=== PATIENT | female | born 1985 | race Hispanic/Latino ===

== ENCOUNTER 2017-04-03 17:11 | Emergency (ER) | payer OTHER ==
[2017-04-03] MEDS ORDERED: FLEXERIL PO ONE (20:40)
[2017-04-03] MEDS ORDERED: ULTRAM PO ONE (20:40)
--- NOTE | 2017-04-03 21:48 | Cat Scan Report ---
FINAL REPORT EXAM: CT CERVICAL SPINE WO CON HISTORY: c spine tenderness and pain COMPARISON: None available. TECHNIQUE: Axial images obtained through the cervical spine. Additional sagittal and coronal reformatted images were obtained. FINDINGS: Normal lordotic curvature of the cervical spine. Cervical vertebral body heights are preserved. No acute fracture or traumatic subluxation. Odontoid process, articular pillars and occipital condyles are intact. No significant bony encroachment upon the canal or foramen. IMPRESSION: No acute fracture or subluxation of the cervical spine.
--- NOTE | 2017-04-03 22:57 | XRay Report ---
FINAL REPORT EXAM: XR SPINE LUMBOSACRAL 2-3V HISTORY: spine tenderness after lifting someone heavy COMPARISON: None available. FINDINGS: Three views of the lumbar spine obtained. Lumbar vertebral body heights and disc heights are preserved. Pedicles are intact. No spondylolisthesis. Mild straightening of the lumbar spine. IMPRESSION: Lumbar vertebral body heights and disc heights are preserved. Mild straightening of the lumbar spine which may be positional or could relate to muscle spasm.
--- NOTE | 2017-04-03 22:57 | XRay Report ---
FINAL REPORT EXAM: XR CHEST ROUTINE 2V HISTORY: rib pain and after trying to lift up heavy person COMPARISON: None available. FINDINGS:: Frontal and lateral views of the chest obtained. Cardiac silhouette is within normal limits. No focal consolidation or effusion. No pneumothorax. Visualized bony thorax is grossly intact. IMPRESSION:: No acute findings.
--- NOTE | 2017-04-03 23:11 | XRay Report ---
FINAL REPORT EXAM: XR SPINE THORACIC 3V HISTORY: spinal tenderness after lifting up heavy person COMPARISON: None available. FINDINGS: Three views of the thoracic spine obtained. Thoracic vertebral body heights are preserved. Minimal endplate osteophyte. Disc heights are preserved. Pedicles are intact. Normal kyphotic curvature. IMPRESSION: Thoracic vertebral body heights are preserved. Minimal degenerative changes.
[2017-04-03 23:34] VITALS: BP 122/82
--- NOTE | 2017-04-03 23:34 | Emergency Department Report ---
ED Back Pain/Injury HPI - General Chief Complaint: Back Pain/Injury Stated Complaint: BACK PAIN Source: patient Limitations: No Limitations - History of Present Illness Initial Comments: 31 y/o obese causcasian F with pmhx of hypothryroidism presents to the ER s/p a work related injury that happened 2 days ago. 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 pt states that she took aleive and back aid with mild relief of the pain. Pt denies any caudina equina symptoms, no saddle anesthsiea, bladder/bowel incontinences. She denies any numbness or tingling. She denies any chest pain or SOB at this time. Pt denies being on any control, denies immobilization, no long car or plane rides recently, no cancer hx. SHe states that the pain is on and off she states it feels like it tightens and then lets go. Pt states that she had a tubal ligation after her last child- no chance of . Allergies to bacitracin, latex, neomycin, and polymyxin. MD Complaint: back pain, back injury -: Sudden (2 days ago) Similar Symptoms Previously: No Place: work Radiation: other (near breast) Severity: severe Severity scale (0 -10): 10 Quality: sharp Consistency: intermittent Improves With: none Worsens With: none Context: while lifting Treatments Prior to Arrival: NSAIDS, other (back aid) - Related Data Previous Rx's Medication Instructions Recorded Last Taken Type Cyclobenzaprine [Flexeril] 10 mg PO TID PRN #15 tablet 04/03/17 Unknown Rx HYDROcodone/ACETAMINOPHEN [[place] 1 each PO Q6HR PRN #15 tablet 04/03/17 Unknown Rx 5-325 Tablet] Allergies Allergy/AdvReac Type Severity Reaction Status Date / Time bacitracin AdvReac Rash Verified 04/03/17 17:58 [From Neosporin ([id number])] latex AdvReac Rash Verified 04/03/17 17:58 neomycin AdvReac Rash Verified 04/03/17 17:58 [From Neosporin ([id number])] polymyxin B AdvReac Rash Verified 04/03/17 17:58 [From Neosporin ([id number])] ED Review of Systems ROS: Stated complaint: BACK PAIN Other details as noted in HPI Constitutional: denies: chills, fever Eyes: denies: eye pain, eye discharge, vision change ENT: denies: ear pain, throat pain Respiratory: other (some radiation of the pain to the ribs). denies: cough, shortness of breath, wheezing Cardiovascular: denies: chest pain, palpitations Gastrointestinal: denies: abdominal pain, nausea, diarrhea Genitourinary: denies: urgency, dysuria, discharge Musculoskeletal: back pain Skin: denies: rash, lesions Neurological: denies: headache, weakness, paresthesias Psychiatric: denies: anxiety, depression ED Past Medical Hx - Past Medical History Previous Medical History?: No - Surgical History Past Surgical History?: Yes Hx Appendectomy: Yes Additional Surgical History: x 4, knee, tubal - Social History Smoking Status: Current Every Day Smoker Substance Use Type: None - Medications Home Medications: Home Medications Medication Instructions Recorded Confirmed Last Taken Type Cyclobenzaprine [Flexeril] 10 mg PO TID PRN #15 tablet 04/03/17 Unknown Rx HYDROcodone/ACETAMINOPHEN [[place] 1 each PO Q6HR PRN #15 tablet 04/03/17 Unknown Rx 5-325 Tablet] ED Physical Exam - General Limitations: No Limitations General appearance: alert, in no apparent distress, other (appears to be in extreme pain when I first examined patient-- pt was in a wheelchair for transport at first but by the end of the visit she was able to ambulate on her own ) - Head Head exam: Present: atraumatic, normocephalic - Eye Eye exam: Present: normal appearance - ENT ENT exam: Present: mucous membranes moist - Neck Neck exam: Present: tenderness (at the C- spine), full ROM - Respiratory Respiratory exam: Present: normal lung sounds bilaterally, other (some radiation of the pain to the sides at the rib cage region). Absent: respiratory distress - Cardiovascular Cardiovascular Exam: Present: regular rate, normal rhythm. Absent: systolic murmur, diastolic murmur, rubs, gallop - GI/Abdominal GI/Abdominal exam: Present: soft, normal bowel sounds - Extremities Exam Extremities exam: Present: normal inspection - Back Exam Back exam: Present: muscle spasm, paraspinal tenderness (at the c, t, and l spine region), vertebral tenderness, other (there was no swelling, bruising, or redness noted) - Neurological Exam Neurological exam: Present: alert, oriented X3, CN II-XII intact, other (pt was bent over as she was in alot of pain) - Expanded Neurological Exam Expanded Patient oriented to: Present: person, place, time Speech: Present: fluid speech Best Eye Response ([place]): (4) open spontaneously Best Motor Response (Fabian): (6) obeys commands Best Verbal Response ([place]ian): (5) oriented [place] Total: 15 - Psychiatric Psychiatric exam: Present: normal affect, normal mood - Skin Skin exam: Present: warm, dry, intact, normal color. Absent: rash ED Course Vital Signs 04/03/17 04/03/17 17:52 23:33 Temperature 98.2 F 98.0 F Pulse Rate 92 H 79 Respiratory 18 18 Rate Blood Pressure 127/94 Blood Pressure 122/82 [Right] O2 Sat by Pulse 97 98 Oximetry ED Medical Decision Making - Radiology Data Radiology results: report reviewed, image reviewed CT cervical w/o contrast: no acute findings or subluxation of the cervical spine. XR thoracic spine: throacic vertebral body height are preserved, minimal degenerative changes. (osteophyte) XR lumbosacral spine: lumbar vertebral body heights and disc heights are preserved. mild straigthening of the lumbar spine which may be positional or could be related to muscle spasm. XR chest routine: (I did not see any rib fractures.)-- no acute findings were noted by radiology. - Medical Decision Making CT of the c spine was conducted as she had tenderness at the cervical spine region and this is a more definitive exam, then XR of the thoracic and lumbar regions were also conducted-- there was no evidence of fractures. I have offered to do a more extensive cardio and pulmonary work-up as she states that at points it may feel like the pain comes to the anterior aspect of her chest. pt denies and signed AMA form, risks and benefits of refusal were explained to the patient. Armen was in the room to witness. Pt was given ultram and flexeril here in the ED with severe improvement of her pain. Case was discussed with Dr. Oliva, she states that we can discharge patient at this time with [place] and flexeril. I also encouraged rest and warm compresses with orthopedic follow-up. Pt was alert and oriented, vitals were all WNL, and she was speaking in full sentences and was able to walk on her own at discharge. Pt was to take uber to transport her home. Critical care attestation.: If time is entered above; I have spent that time in minutes in the direct care of this critically ill patient, excluding procedure time. ED Disposition Clinical Impression: Muscle spasm Back pain Qualifiers: Back pain location: back pain in unspecified location Chronicity: acute Back pain laterality: bilateral Qualified Code(s): M54.9 - Dorsalgia, unspecified Disposition: - TO HOME OR SELFCARE Is pt being admited?: No Does the pt Need Aspirin: No Condition: Stable Instructions: Muscle Spasm (ED) Additional Instructions: Please do warm compresses to the site and rest. Please do not take this medication when driving or operating heavy machinery as it will make you drowsy. Please follow-up with orthopedics within 1 week. please return to the ER immediately if your presenting symptoms acutely worsen as discussed today. Prescriptions: Cyclobenzaprine [Flexeril] 10 mg PO TID PRN #15 tablet PRN Reason: Muscle Spasm HYDROcodone/ACETAMINOPHEN [[place] 5-325 Tablet] 1 each PO Q6HR PRN #15 tablet PRN Reason: Pain Referrals: PRIMARY CAREMD [Primary Care Provider] - 3-5 Days ARIS MARTINEZ MD [Staff Physician] - 3-5 Days [facility] [Outside] - 3-[address] [facility] [Outside] - 3-5 Days Forms: Accompanied Note, Work/School Release Form(ED)
== END 2017-04-03 23:40 | disposition home or self-care (01) ==
LOC: ED 17:11
DX: M62.830 Muscle spasm of back (principal); F17.200 Nicotine dependence, unspecified, uncomplicated; Z88.8 Allergy status to other drugs, medicaments and biological substances; Z88.1 Allergy status to other antibiotic agents; Z91.040 Latex allergy status
CPT/HCPCS: 71020; 72072; 72100; 72125; 99284

== ENCOUNTER 2021-07-04 17:32 | Emergency (ER) | payer SELFPAY ==
[2021-07-04 19:46] LABS: Basophils # (Auto) 0.1 K/mm3 (0.0-0.1); Basophils % (Auto) 0.7 % (0.0-1.8); Eosinophils # (Auto) 0.2 K/mm3 (0.0-0.4); Eosinophils % (Auto) 1.8 % (0.0-4.3); Hemoglobin 14.2 gm/dl (10.1-14.3); Lymphocytes # (Auto) 2.9 K/mm3 (1.2-5.4); Lymphocytes % (Auto) 33.7 % (13.4-35.0); Mean Corpuscular HGB Conc 35 % (30-34); Mean Corpuscular Volume 91 fl (79-97); Monocytes # (Auto) 0.5 K/mm3 (0.0-0.8); Monocytes % (Auto) 5.7 % (0.0-7.3); Platelet Count 328 K/mm3 (140-440); Red Blood Count 4.48 M/mm3 (3.65-5.03); Red Cell Distribution Width 13.6 % (13.2-15.2)
[2021-07-04 20:02] LABS: INR 0.84 (0.87-1.13); Partial Thromboplastin Time 27.8 Sec. (24.2-36.6)
[2021-07-04 20:12] LABS: Alanine Aminotransferase 29 units/L (7-56); Albumin 4.2 g/dL (3.9-5); Blood Urea Nitrogen 8 mg/dL (7-17); Calcium 9.4 mg/dL (8.4-10.2); Hemolysis Index 5
[2021-07-04 20:22] LABS: BUN/Creatinine Ratio 16
--- NOTE | 2021-07-04 20:29 | Emergency Department Report ---
HPI - General Chief Complaint: GI Bleed Time Seen by Provider: 07/04/21 20:03 - HPI HPI: Reassessment 4 The patient is a 35-year-old female present with a chief complaint of headache and hematochezia. Patient states she has had 3-4 headaches a day daily for the past 2 months. Patient states this usually occipital in nature. Patient denies any preceding trauma or history of fever. Patient states also today she developed some periumbilical abdominal pain then went to the bathroom. Patient states she thought she was having diarrhea but noted she was passing blood in the stool. Patient had a second episode and passed more blood with clots. Deo gutierrez states she then developed lower abdominal pain described as a pressure and nausea without vomiting. Patient subsequently came to the ED for evaluation. ED Past Medical Hx - Past Medical History Previous Medical History?: Yes Additional medical history: hypothyroidism, endometriosis - Surgical History Past Surgical History?: Yes Hx Appendectomy: Yes Additional Surgical History: x 4, knee, bilateral tubal ligation, hysteroscopy, ganglion cyst removal left wrist - Family History Family history: no significant - Social History Smoking Status: Current Every Day Smoker (1 pack/day) Substance Use Type: None (Denies illicit drug use), Alcohol (Rarely) - Medications Home Medications: Home Medications Medication Instructions Recorded Confirmed Last Taken Type Cyclobenzaprine [Flexeril] 10 mg PO TID PRN #15 tablet 04/03/17 Unknown Rx HYDROcodone/ACETAMINOPHEN [[place] 1 each PO Q6HR PRN #15 tablet 04/03/17 Unknown Rx 5-325 Tablet] Ciprofloxacin HCl 500 mg PO BID #10 07/04/21 Unknown Rx HYDROcodone/APAP 5-325 [[place] 1 - 2 each PO Q6HR PRN #10 tablet 07/04/21 Unknown Rx 5/325] ED Review of Systems ROS: Stated complaint: RECTAL BLEEDING Other details as noted in HPI Constitutional: denies: fever Eyes: denies: eye pain ENT: denies: throat pain Respiratory: no symptoms reported Cardiovascular: denies: chest pain Endocrine: no symptoms reported Gastrointestinal: abdominal pain, nausea, hematochezia. denies: vomiting Genitourinary: denies: dysuria Musculoskeletal: denies: back pain Neurological: headache Physical Exam - Physical Exam Vital Signs: Vital Signs 07/04/21 17:42 Temperature 98.2 F Pulse Rate 90 Respiratory 20 Rate Blood Pressure 142/82 [Right] O2 Sat by Pulse 98 Oximetry Physical Exam: GENERAL: The patient is well-developed well-nourished female lying on stretcher not appearing to be in acute distress. [] HEENT: Normocephalic. Atraumatic. Extraocular motions are intact. Patient has moist mucous membranes. NECK: Supple. No meningitic signs are noted. Trachea midline CHEST/LUNGS: Clear to auscultation. There is no respiratory distress noted. HEART/CARDIOVASCULAR: Regular. There is no tachycardia. There is no gallop rub or murmur. ABDOMEN: Abdomen is soft, with mild discomfort to palpation in the left lower quadrant and suprapubic region. Patient has normal bowel sounds. There is no abdominal distention. SKIN: There is no rash. There is no edema. There is no diaphoresis. NEURO: The patient is awake, alert, and oriented. The patient is cooperative. The patient has no focal neurologic deficits. The patient has normal speech. GCS 15. Cranial nerves II through XII grossly intact MUSCULOSKELETAL: There is no evidence of acute injury. RECTAL: Guaiac positive. No external hemorrhoids visualized ED Course Vital Signs 07/04/21 17:42 Temperature 98.2 F Pulse Rate 90 Respiratory 20 Rate Blood Pressure 142/82 [Right] O2 Sat by Pulse 98 Oximetry - Consultations Consultation #1: 07/04/21 23:04 GI paged 07/04/21 23:13 Case discussed with principal law clerk Dr. Champion-recommends initiating ciprofloxacin or Augmentin x5 days and have patient follow-up in office ED Medical Decision Making - Lab Data Result diagrams: 07/04/21 19:23 07/04/21 19:23 Laboratory Tests 07/04/21 07/04/21 07/04/21 19:23 19:23 19:23 WBC 8.6 RBC 4.48 Hgb 14.2 Hct 41.0 MCV 91 MCH 32 MCHC 35 H RDW 13.6 Plt Count 328 Lymph % (Auto) 33.7 Hayes % (Auto) 5.7 Eos % (Auto) 1.8 Baso % (Auto) 0.7 Lymph # (Auto) 2.9 Hayes # (Auto) 0.5 Eos # (Auto) 0.2 Baso # (Auto) 0.1 Seg Neutrophils % 58.1 Seg Neutrophils # 5.0 PT 12.4 INR 0.84 L APTT 27.8 Sodium 142 Potassium 4.2 Chloride 105.7 Carbon Dioxide 25 Anion Gap 16 BUN 8 Creatinine 0.5 L Estimated GFR > 60 BUN/Creatinine Ratio 16 Glucose 90 Calcium 9.4 Total Bilirubin < 0.20 AST 23 ALT 29 Alkaline Phosphatase 67 Total Protein 7.0 Albumin 4.2 Albumin/Globulin Ratio 1.5 Blood Type Antibody Screen 07/04/21 19:23 WBC RBC Hgb Hct MCV MCH MCHC RDW Plt Count Lymph % (Auto) Hayes % (Auto) Eos % (Auto) Baso % (Auto) Lymph # (Auto) Hayes # (Auto) Eos # (Auto) Baso # (Auto) Seg Neutrophils % Seg Neutrophils # PT INR APTT Sodium Potassium Chloride Carbon Dioxide Anion Gap BUN Creatinine Estimated GFR BUN/Creatinine Ratio Glucose Calcium Total Bilirubin AST ALT Alkaline Phosphatase Total Protein Albumin Albumin/Globulin Ratio Blood Type O POSITIVE Antibody Screen Negative - Radiology Data Radiology results: report reviewed (CT head, CT abdomen pelvis), image reviewed (CT head, CT abdomen pelvis) [address] [address] Cat Scan Report Signed Patient: JORDEN DIAZ MR#: [id number] : 1985 Acct:[id number] Age/Sex: 35 / F ADM Date: 07/04/21 Loc: ED Attending Dr: Ordering Physician: SELENA PAT MD Date of Service: 07/04/21 Procedure(s): CT head/brain wo con Accession Number(s): [id number] cc: SELENA PAT MD . CT HEAD WITHOUT CONTRAST INDICATION / CLINICAL INFORMATION: Occipital headache x3 months. TECHNIQUE: All CT scans at this location are performed using CT dose reduction for ALARA by means of automated exposure control. COMPARISON: None available. FINDINGS: HEMORRHAGE: None. EXTRA-AXIAL SPACES: Normal in size and morphology for the patient's age. VENTRICULAR SYSTEM: Normal in size and morphology for the patient's age. CEREBRAL PARENCHYMA: No significant abnormality. No acute territorial infarct. MIDLINE SHIFT / HERNIATION: None. CEREBELLUM / BRAINSTEM: No significant abnormality. ORBITS: Normal as visualized SOFT TISSUES: No significant abnormality. SKULL: No significant abnormality. PARANASAL SINUSES / MASTOID AIR CELLS: There is opacification of the paranasal sinuses. ADDITIONAL FINDINGS: None. IMPRESSION: 1. No acute intracranial abn ormality. Signer Name: Loc Abraham Garcia DO Signed: 07/04/2021 10:06 PM Workstation Name: [id number] Transcribed By: UTE Dictated By: LOC GARCIA DO Electronically Authenticated By: LOC GARCIA DO Signed Date/Time: 07/04/212205 DD/ 03 TD/TT: Print Cancel [facility] [address] [place] [address] Cat Scan Report Signed Patient: JORDEN DIAZ MR#: [id number] : 1985 Acct:[id number] Age/Sex: 35 / F ADM Date: 07/04/21 Loc: ED Attending Dr: Ordering Physician: SELENA PAT MD Date of Service: 07/04/21 Procedure(s): CT angio abdomen pelvis Accession Number(s): [id number] cc: SELENA PAT MD CTA ABDOMEN AND PELVIS WITHOUT AND WITH CONTRAST INDICATION / CLINICAL INFORMATION: Hematochezia, lower abdominal pain. TECHNIQUE: Axial CT images were obtained through the abdomen and pelvis before and after after injection of 100 cc of Omnipaque 350 IV contrast. 3 plane MIP / 3D reconstructions were produced. All CT scans at this location are performed using CT dose reduction fo r ALARA by means of automated exposure control. COMPARISON: None available. FINDINGS: AORTA: No significant abnormality. RENAL ARTERIES: No significant abnormality. CELIAC ARTERY: No significant abnormality. SUPERIOR MESENTERIC ARTERY: No significant abnormality. INFERIOR MESENTERIC ARTERY: No significant abnormality. RIGHT ILIAC ARTERIES: No significant abnormality.. LEFT ILIAC ARTERIES: No significant abnormality.. ADDITIONAL FINDINGS: The lung bases are clear. Along the sigmoid colon there is a focal fat attenuating lesion, likely representing a small focus of epiploic appendagitis. There is no increased density on noncontrast imaging throughout the colon or small bowel to suggest active hemorrhage. No blush on portal venous phase either. The appendix is not seen. The liver, gallbladder, pancreas, spleen, adrenal glands are unremarkable. Several cysts are scattered throughout the bilateral kidneys, no hydronephrosis. No nephrolithiasis. SKELETAL: No significant abnormality. IMPRESSION: 1. Epiploic appendagitis of the sigmoid colon, otherwise no CT findings to explain symptomatology. 2. Additional findings as above Signer Name: Loc Garcia DO Signed: 07/04/2021 10:23 PM Workstation Name: [id number] Transcribed By: UTE Dictated By: LOC GARCIA DO Electronically Authenticated By: LOC GARCIA DO Signed Date/Time: 07/04/212222 DD/ 13 TD/TT: Print Cancel - Differential Diagnosis Headache, intracranial mass, migraines, GI bleed, diverticulitis, colitis Critical care attestation.: If time is entered above; I have spent that time in minutes in the direct care of this critically ill patient, excluding procedure time. ED Disposition Clinical Impression: Acute abdominal pain, Hematochezia, Epiploic appendagitis Disposition: HOME / SELF CARE / HOMELESS Is pt being admited?: No Does the pt Need Aspirin: No Condition: Stable Instructions: Gastrointestinal Bleeding, [id number], Abdominal Pain, Adult Additional Instructions: Return to the emergency department should you develop worsening symptoms, inability to tolerate food or liquids, high fever or any other concerns Prescriptions: Ciprofloxacin HCl 500 mg PO BID #10 HYDROcodone/APAP 5-325 [[place] 5/325] 1 - 2 each PO Q6HR PRN #10 tablet PRN Reason: Pain Referrals: RENETTA CHAMPION MD [Staff Physician] - 3-5 Days (Dr. Champion is a principal law clerk. Please follow-up with him for further evaluate) Forms: Accompanied Note Time of Disposition: 23:24
--- NOTE | 2021-07-04 22:10 | Cat Scan Report ---
. CT HEAD WITHOUT CONTRAST INDICATION / CLINICAL INFORMATION: Occipital headache x3 months. TECHNIQUE: All CT scans at this location are performed using CT dose reduction for ALARA by means of automated exposure control. COMPARISON: None available. FINDINGS: HEMORRHAGE: None. EXTRA-AXIAL SPACES: Normal in size and morphology for the patient's age. VENTRICULAR SYSTEM: Normal in size and morphology for the patient's age. CEREBRAL PARENCHYMA: No significant abnormality. No acute territorial infarct. MIDLINE SHIFT / HERNIATION: None. CEREBELLUM / BRAINSTEM: No significant abnormality. ORBITS: Normal as visualized SOFT TISSUES: No significant abnormality. SKULL: No significant abnormality. PARANASAL SINUSES / MASTOID AIR CELLS: There is opacification of the paranasal sinuses. ADDITIONAL FINDINGS: None. IMPRESSION: 1. No acute intracranial abnormality. Signer Name: Loc Sage DO Signed: 07/04/2021 10:06 PM Workstation Name: [id number]
--- NOTE | 2021-07-04 22:28 | Cat Scan Report ---
CTA ABDOMEN AND PELVIS WITHOUT AND WITH CONTRAST INDICATION / CLINICAL INFORMATION: Hematochezia, lower abdominal pain. TECHNIQUE: Axial CT images were obtained through the abdomen and pelvis before and after after inject ion of 100 cc of Omnipaque 350 IV contrast. 3 plane MIP / 3D reconstructions were produced. All CT sc ans at this location are performed using CT dose reduction for [place] by means of automated exposure c ontrol. COMPARISON: None available. FINDINGS: AORTA: No significant abnormality. RENAL ARTERIES: No significant abnormality. CELIAC ARTERY: No significant abnormality. SUPERIOR MESENTERIC ARTERY: No significant abnormality. INFERIOR MESENTERIC ARTERY: No significant abnormality. RIGHT ILIAC ARTERIES: No significant abnormality.. LEFT ILIAC ARTERIES: No significant abnormality.. ADDITIONAL FINDINGS: The lung bases are clear. Along the sigmoid colon there is a focal fat attenuati ng lesion, likely representing a small focus of epiploic appendagitis. There is no increased density on noncontrast imaging throughout the colon or small bowel to suggest active hemorrhage. No blush on portal venous phase either. The appendix is not seen. The liver, gallbladder, pancreas, spleen, adren al glands are unremarkable. Several cysts are scattered throughout the bilateral kidneys, no hydronep hrosis. No nephrolithiasis. SKELETAL: No significant abnormality. IMPRESSION: 1. Epiploic appendagitis of the sigmoid colon, otherwise no CT findings to explain symptomatology. 2. Additional findings as above Signer Name: Loc Sage DO Signed: 07/04/2021 10:23 PM Workstation Name: [id number]
[2021-07-04 23:01] VITALS: BP 120/68
== END 2021-07-04 23:50 | disposition home or self-care (01) ==
LOC: ED 17:32
DX: K63.89 Other specified diseases of intestine (principal); R10.9 Unspecified abdominal pain; K92.1 Melena; Z98.890 Other specified postprocedural states; F17.200 Nicotine dependence, unspecified, uncomplicated
CPT/HCPCS: 36415; 70450; 74174; 80053; 82271; 85025; 85610; 85730; 86850; 86900; 86901; 99284; Q9967